=== PATIENT | male | born 1930 | race Hispanic/Latino ===

== ENCOUNTER 2017-07-11 19:33 | Emergency (ER) | payer MEDICARE, BC ==
[2017-07-11] MEDS ORDERED: Sodium Chloride 0.9% 500 ML IV STA (20:49)
[2017-07-11] MEDS ORDERED: Sodium Chloride 0.9% 500 ML IV ONE (21:16)
[2017-07-11 21:21] LABS: URINE BACTERIA RARE (<OCC); URINE BILIRUBIN NEGATIVE (NEGATIVE); URINE BLOOD 3+ (NEGATIVE); URINE CLARITY Hazy (Clear); URINE COLOR Yellow (YELLOW); URINE GLUCOSE (UA) NORMAL (Normal); URINE LEUKOCYTE ESTERASE NEG Leu/uL (Negative); URINE NITRATE NEGATIVE (NEGATIVE); URINE PROTEIN NEGATIVE (NEGATIVE); URINE UROBILINOGEN NORMAL mg/dL (0.2-1.0)
[2017-07-11 21:27] LABS: ALB/GLOB RATIO 1.2 (1.0-2.1); ALBUMIN 3.5 g/dL (3.5-5.0); ALT/SGPT 31 U/L (21-72); AST/SGOT 48 U/L (17-59); BLOOD UREA NITROGEN 37 mg/dL (9-20); CALCIUM 8.2 mg/dl (8.6-10.4); GFR AFRICAN-AMERICAN > 60; GFR NON-AFRICAN AMERICAN > 60
[2017-07-11 21:28] LABS: BASO % 0.2 % (0.0-2.0); EOS % 0.2 % (0.0-4.0); LYMPH # 0.8 K/uL (1.0-4.3); MEAN CORPUSCULAR HEMOGLOBIN 27.4 pg (27.0-31.0); MEAN PLATELET VOLUME 9.1 fL (7.2-11.7); MONO # 1.2 K/uL (0.0-0.8); MONO % 9.3 % (0.0-10.0); NEUT # 10.6 K/uL (1.8-7.0); NEUT % 84.3 % (50.0-75.0); PLATELET COUNT 278 K/uL (130-400); RBC 2.75 Mil/uL (4.40-5.90); RED CELL DISTRIBUTION WIDTH 16.5 % (11.5-14.5); WHITE BLOOD COUNT 12.6 K/uL (4.8-10.8)
[2017-07-11 21:31] LABS: HEMOGLOBIN 7.5 g/dL (12.0-18.0); MEAN CELL VOLUME 83.1 fL (80.0-94.0)
--- NOTE | 2017-07-11 21:53 | C.PDOC ---
History Of Present Illness Pt has been having difficulty urinating since yesterday. He was discharged s/p right hip surgery two days ago. Time Seen by Provider: 07/11/17 20:24 Chief Complaint (Nursing): Male Genitourinary History Per: Patient Onset/Duration Of Symptoms: Days (1) Current Symptoms Are (Timing): Still Present Severity: Moderate Quality Of Discomfort: Unable To Describe Associated Symptoms: Urinary Symptoms Alleviating Factors: None Additional History Per: Prior Records Past Medical History Reviewed: Historical Data, Nursing Documentation, Vital Signs Vital Signs: Last Vital Signs Temp 97.8 F 07/11/17 19:44 Pulse 95 H 07/11/17 19:44 Resp 18 07/11/17 19:44 BP 156/76 H 07/11/17 19:44 Pulse Ox 99 07/11/17 19:44 - Medical History PMH: No Chronic Diseases Other Surgeries: Right hip surgery Family History: States: Unknown Family Hx - Social History Hx Alcohol Use: Yes Hx Substance Use: No - Immunization History Hx Tetanus Toxoid Vaccination: No Hx Influenza Vaccination: No Hx Pneumococcal Vaccination: No Review Of Systems Except As Marked, All Systems Reviewed And Found Negative. Constitutional: Negative for: Fever, Weakness Cardiovascular: Negative for: Chest Pain Respiratory: Negative for: Shortness of Breath Gastrointestinal: Negative for: Vomiting Musculoskeletal: Negative for: Neck Pain, Back Pain Skin: Negative for: Rash Neurological: Negative for: Weakness, Numbness Physical Exam - Physical Exam Appears: No Acute Distress Skin: Warm, Dry Head: Atraumatic, Normacephalic Eye(s): bilateral: PERRL, EOMI Neck: Normal ROM, Supple Cardiovascular: Rhythm Regular, Murmur Respiratory: Normal Breath Sounds, No Accessory Muscle Use Gastrointestinal/Abdominal: Soft, No Tenderness (after Raygoza catheter was inserted by RN) Back: No CVA Tenderness Male Genital: No Testicular Tenderness Neurological/Psych: Oriented x3, Normal Motor, Normal Sensation ED Course And Treatment - Laboratory Results Result Diagrams: 07/11/17 21:10 07/11/17 21:10 Lab Interpretation: Abnormal Interpretation Of Abnormal: Anemia (pt states he was told that he lost a lot of blood during surgery and was started on Iron pills). O2 Sat by Pulse Oximetry: 99 Pulse Ox Interpretation: Normal Progress Note: Raygoza catheter was inserted by RN with return of 600 cc of urine. Reassessment Condition: Improved Disposition Counseled Patient/Family Regarding: Studies Performed, Diagnosis, Need For Followup - Disposition Referrals: Sis Escoto MD [Primary Care Provider] - Lucy Foote MD [Staff Provider] - Disposition: HOME/ ROUTINE Disposition Time: 21:54 Condition: IMPROVED Additional Instructions: Follow up with your primary doctor and a Urologist within 1 week for further evaluation and treatment. Return to the ER if you develop fever, abdominal pain , urine problem, worsening of symptoms or if you have any other concerns. Instructions: Raygoza Catheter Placement and Care (ED) - Clinical Impression Clinical Impression: Postoperative urinary retention
[2017-07-11 21:55] LABS: ANISOCYTOSIS MODERATE; HYPOCHROMIC SLIGHT; LYMPHOCYTE 5 % (20-40); MONOCYTE 6 % (0-10); NEUTROPHIL 89 % (50-75); PLATELET ESTIMATE NORMAL (NORMAL); POIKILOCYTOSIS MODERATE; POLYCHROMIC SLIGHT; TOTAL CELLS COUNTED 100
[2017-07-11 22:46] VITALS: BP 148/79; PULSE 87; RESP 16; TEMP 97.9; O2SAT 97
== END 2017-07-11 22:55 | disposition home or self-care (01) ==
LOC: C.ER 19:33 → SUPCPDRO 19:33 → C.ER 22:55
DX: R33.9 Retention of urine, unspecified (principal); Z98.890 Other specified postprocedural states
CPT/HCPCS: 51702; 80053; 81001; 85025; 87086; 99285; J7040